=== PATIENT | male | born 1980 | race Caucasian/White ===

== ENCOUNTER 2022-03-12 08:15 | Outpatient (RCR) | payer OTHER, SELFPAY | END 2022-11-20 23:59 | disposition home or self-care (01) | PROVIDERS: PCP Family Medicine; Visit Provider Family Medicine | DX: M54.50 Low back pain, unspecified (principal); Y99.0 Civilian activity done for income or pay; Z51.89 Encounter for other specified aftercare | CPT/HCPCS: 97012; 97110; 97161 ==